=== PATIENT | male | born 1955 | race Caucasian/White ===

== ENCOUNTER 2018-08-15 11:56 | Emergency (ER) | payer MEDICAID ==
--- NOTE | 2018-08-15 12:23 | Emergency Department Record ---
History of Present Illness - General Chief complaint: Extremity Problem Stated complaint: FELL INJ LEFT ARM Time Seen by Provider: 08/15/18 12:04 Source: Patient Mode of Arrival: Ambulatory Limitations: No limitations - History of Present Illness Initial comments: The patient is here due to L elbow pain for an hour. He was out cutting wood and slipped and grabbed the door to catch himself with his L arm. He then suddenly had pain over the posterior L elbow area. Since he is able to flex the L elbow but is having a lot of pain when he extends the L arm at the elbow. MD Complaint: Extremity pain Onset/Timin -: Minutes(s) Location: Left History of Same: No Radiation: Distal Severity scale (1-10): 8 Quality: Sharp Consistency: Constant Improves with: Cold therapy Worsens with: Exertion Associated Symptoms: Denies other symptoms - Related Data Home Medications Medication Instructions Recorded Confirmed Last Taken Lisinopril 30 mg PO DAILY 08/15/18 08/15/18 08/14/18 07:30 Naproxen 500 mg PO BID 08/15/18 08/15/18 08/14/18 07:30 1 Allergies Allergy/AdvReac Type Severity Reaction Status Date / Time No Known Drug Allergies Allergy Verified 08/15/18 12:05 Travel Screening - Travel/Exposure Within Last 30 Days Have you traveled within the last 30 days?: No - Travel/Exposure Within Last Year Have you traveled outside the [place] in the last year?: No - Additonal Travel Details Have you been exposed to anyone with a communicable illness?: No - Travel Symptoms Symptom Screening: None Review of Systems Constitutional: Denies: Chills, Fever Eyes: Denies: Eye discharge ENT: Denies: Congestion Respiratory: Denies: Cough, Dyspnea Past Medical History - SOCIAL HISTORY Smoking Status: Never smoker Alcohol Use: None Drug Use: None - RESPIRATORY Hx Respiratory Disorders: No - CARDIOVASCULAR Hx Cardio Disorders: Yes Hx Hypertension: Yes - NEURO Hx Neuro Disorders: No - GI Hx GI Disorders: No - Hx Genitourinary Disorders: No - ENDOCRINE Hx Endocrine Disorders: No - MUSCULOSKELETAL Hx Musculoskeletal Disorders: Yes Hx Arthritis: Yes - PSYCH Hx Psych Problems: No - HEMATOLOGY/ONCOLOGY Hx Hematology/Oncology Disorders: No Family Medical History Any Significant Family History?: No Physical Exam - General General Appearance: Alert, Cooperative, No acute distress - Head Head exam: Atraumatic, Normocephalic, Normal inspection - Eye Eye exam: Normal appearance, PERRL - Extremities Extremities exam: Normal inspection, Normal capillary refill, Tenderness (There is significant tenderness to palpation at the insertion of the L triceps at the elbow but no swelling or bruising is appreciated.), Other (The L arm is NVI.). negative: Full ROM (The patient is able to extend the L elbow slowly and with some pain.), Joint swelling Course Vital Signs 08/15/18 12:07 Temperature 97.7 F Pulse Rate 74 Respiratory 16 Rate Blood Pressure 111/82 Pulse Ox 96 - Reevaluation(s) Reevaluation #1: I did explain to the patient that I am concerned he has a partially torn Tricep muscle. I discussed with the patient that I do not feel a defect in the muscle or tendon but he is quite tender at the Tricep insertion. We will place the patient in a sling and he is to see his PCP in [place] for Ortho referral. 08/15/18 13:02 Medical Decision Making - Data Complexity MDM Data: X-Ray Ordered and/or Reviewed - Radiology Data Radiology results: Report reviewed (L elbow: small calcific density proximal to L olecranon, poss. small avulsion vs chronic changes. ) Disposition Disposition: Discharge Clinical Impression: Sprain of elbow, left Qualifiers: Encounter type: initial encounter Qualified Code(s): S53.402A - Unspecified sprain of left elbow, initial encounter Disposition: Home, Self-Care Condition: (2) Stable Instructions: Elbow Sprain (ED) Additional Instructions: Please wear the sling for a week and see your family doctor for further evaluation. Take your home Naprosyn for pain and also may add Tylenol. Please use ice on the L elbow when possible. Forms: Patient Portal Access Time of Disposition: 13:05 Quality - Quality Measures Quality Measures: N/A - Blood Pressure Screening View Details: Yes Does Patient Have Any of the Following: No Blood Pressure Classification: Pre-Hypertensive BP Reading Systolic Measurement: 111 Diastolic Measurement: 82 Screening for High Blood Pressure: < Pre-Hypertensive BP, F/U Documented > [ G8950] Pre-Hypertensive Follow-up Interventions: Referral to alternative/primary care provider.
[2018-08-15] MEDS ORDERED: KETOROLAC 30 MG/ML VIAL IM ONE (13:00)
--- NOTE | 2018-08-17 04:43 | RADIOLOGY REPORT ---
DATE: 08/15/2018. EXAM: LEFT ELBOW. HISTORY: Injury. TECHNIQUE: Four views of the left elbow. FINDINGS: Best seen on the lateral film, there is a curvilinear density adjacent to the olecranon process measuring 5.0 x 1.5 mm in size. This may represent an avulsion fracture. The bones and joints otherwise are unremarkable. There is soft tissue swelling. The joint spaces are well maintained. No joint effusion seen. IMPRESSION: CALCIFIC DENSITY SEEN ADJACENT TO THE OLECRANON WHICH MAY REPRESENT AN AVULSION FRACTURE. PLEASE CORRELATE CLINICALLY. OTHERWISE UNREMARKABLE. JOB NUMBER: [id number] [facility]
== END 2018-08-15 13:37 | disposition home or self-care (01) ==
LOC: ER 11:56
DX: S53.402A Unspecified sprain of left elbow, initial encounter (principal); W01.0XXA Fall on same level from slipping, tripping and stumbling without subsequent striking against object, initial encounter; Y93.H9 Activity, other involving exterior property and land maintenance, building and construction
CPT/HCPCS: 99283 ×2; 96372; 73080; J1885

== ENCOUNTER 2019-01-08 13:28 | Emergency (ER) | payer MEDICAID ==
--- NOTE | 2019-01-08 14:27 | Emergency Department Record ---
History of Present Illness - General Chief Complaint: Laceration(s) Stated Complaint: LACERATION ON FINGER Time Seen by Provider: 01/08/19 13:37 Source: Patient, RN notes reviewed Mode of Arrival: Ambulatory - History of Present Illness Initial Commments: laceration on a power saw index finger left hand last tetnus more than 5 years Onset/Timin -: Hour(s) Place: Work Context: Accidental, Power tool use Associated Symptoms: None - Related Data Hx Tetanus Toxoid Vaccination: Yes Year of Tetanus Vaccination: 2015 Previous Rx's Medication Instructions Recorded Cephalexin [Keflex] 500 mg PO QID #40 cap 01/08/19 Hydrocodone/Acetaminophen [Independence 1 each PO Q4HR #18 tablet 01/08/19 5-325 Tablet] Allergies Allergy/AdvReac Type Severity Reaction Status Date / Time No Known Drug Allergies Allergy Verified 08/15/18 12:05 Travel Screening - Travel/Exposure Within Last 30 Days Have you traveled within the last 30 days?: No Review of Systems Reviewed: No additional complaints except as noted below Constitutional: Reports: As per HPI. Denies: Chills, Fever, Malaise, Night sweats, Weakness, Weight change Eyes: Reports: As per HPI. Denies: Eye discharge, Eye pain, Photophobia, Vision change ENT: Reports: As per HPI. Denies: Congestion, Dental pain, Ear pain, Epistaxis, Hearing loss, Throat pain Respiratory: Reports: As per HPI. Denies: Cough, Dyspnea, Hemoptysis, Stridor, Wheezes Cardiovascular: Reports: As per HPI. Denies: Arrhythmia, Chest pain, Dyspnea on exertion, Edema, Murmurs, Orthopnea, Palpitations, Paroxysmal nocturnal dyspnea, Rheumatic Fever, Syncope Endocrine: Reports: As per HPI. Denies: Fatigue, Heat or cold intolerance, P olydipsia, Polyuria Gastrointestinal: Reports: As per HPI. Denies: Abdominal pain, Constipation, Diarrhea, Hematemesis, Hematochezia, Melena, Nausea, Vomiting Genitourinary: Reports: As per HPI. Denies: Dysuria, Frequency, Hematuria, Incontinence, Retention, Testicular pain, Testicular mass, Urgency Musculoskeletal: Reports: As per HPI. Denies: Arthralgia, Back pain, Gout, Joint swelling, Myalgia, Neck pain Skin: Reports: As per HPI. Denies: Bruising, Change in color, Change in hair/nails, Lesions, Pruritus, Rash Neurological: Reports: As per HPI. Denies: Abnormal gait, Confusion, Headache, Numbness, Paresthesias, Seizure, Tingling, Tremors, Vertigo, Weakness Psychiatric: Reports: As per HPI. Denies: Anxiety, Auditory hallucinations, Depression, Homicidal thoughts, Suicidal thoughts, Visual hallucinations Hematological/Lymphatic: Reports: As per HPI. Denies: Anemia, Blood Clots, Easy bleeding, Easy bruising, Swollen glands Past Medical History - SOCIAL HISTORY Smoking Status: Never smoker - RESPIRATORY Hx Respiratory Disorders: No - CARDIOVASCULAR Hx Cardio Disorders: Yes Hx Hypertension: Yes - NEURO Hx Neuro Disorders: No - GI Hx GI Disorders: No - Hx Genitourinary Disorders: No - ENDOCRINE Hx Endocrine Disorders: No - MUSCULOSKELETAL Hx Musculoskeletal Disorders: Yes Hx Arthritis: Yes - PSYCH Hx Psych Problems: No - HEMATOLOGY/ONCOLOGY Hx Hematology/Oncology Disorders: No Family Medical History Any Significant Family History?: No Physical Exam - General General Appearance: Alert, Oriented x3, Cooperative, No acute distress - Head Head exam: Normal inspection - Eye Eye exam: Normal appearance, PERRL Pupils: Normal accommodation - ENT ENT exam: Normal exam, Mucous membranes moist, Normal external ear exam, Normal orophraynx, TM's normal bilaterally Ear exam: Normal external inspection. negative: External canal tenderness Nasal Exam: Normal inspection. negative: Discharge, Sinus tenderness Mouth exam: Normal external inspection, Tongue normal Teeth exam: Normal inspection. negative: Dental caries Throat exam: Normal inspection. negative: Tonsillar erythema, Tonsillar exudate - Neck Neck exam: Normal inspection, Full ROM. negative: Tenderness - Respiratory Respiratory exam: Normal lung sounds bilaterally. negative: Respiratory distress - Cardiovascular Cardiovascular Exam: Regular rate, Normal rhythm, Normal heart sounds - GI/Abdominal GI/Abdominal exam: Soft, Normal bowel sounds. negative: Tenderness - Rectal Rectal exam: Deferred - exam: Deferred - Extremities Extremities exam: Normal inspection, Full ROM, Normal capillary refill. negative: Tenderness - Back Back exam: Reports: Normal inspection, Full ROM. Denies: Muscle spasm, Rash noted, Tenderness - Neurological Neurological exam: Alert, Normal gait, Oriented X3, Reflexes normal - Psychiatric Psychiatric exam: Normal affect, Normal mood - Skin Skin exam: Dry, Intact, Normal color, Warm Course Vital Signs 01/08/19 13:37 Temperature 98.0 F Pulse Rate 67 Respiratory 20 Rate Blood Pressure 101/69 Pulse Ox 96 - Reevaluation(s) Reevaluation #1: laceration avulsion type and nothing to repair and he hit the bone with a saw. Injury happened at work 01/08/19 14:54 01/08/19 14:58 Cleaned laceration with shurclnse and irriagted and no FB 's seen Reevaluation #2: discussed with him risks of infection high and will not put sutures in because risk on infection is high. 01/08/19 15:09 Reevaluation #3: referral to Dr Gonzalez for evaluation on friday or 01/08/19 15:11 01/08/19 15:14 Medical Decision Making - Data Complexity MDM Data: X-Ray Ordered and/or Reviewed (chips of bone seem on xray) Disposition Clinical Impression: Open fracture of finger Qualifiers: Encounter type: initial encounter Finger: index finger Phalanx: distal Fracture alignment: nondisplaced Laterality: left Qualified Code(s): S62.661B - Nondisplaced fracture of distal phalanx of left index finger, initial encounter for open fracture Disposition: Home, Self-Care Condition: (1) Good Instructions: Laceration (ED) Additional Instructions: follow up with Dr Gonzalez on friday of friday for revaluation. Prescriptions: Hydrocodone/Acetaminophen [Independence 5-325 Tablet] 1 each PO Q4HR #18 tablet Cephalexin [Keflex] 500 mg PO QID #40 cap Forms: Patient Portal Access Time of Disposition: 15:16 Quality - Blood Pressure Screening Does Patient Have Any of the Following: No Blood Pressure Classification: Normal BP Reading Systolic Measurement: 101 Diastolic Measurement: 69 Screening for High Blood Pressure: < Normal BP, F/U Not Required > [G8783]
[2019-01-08] MEDS ORDERED: Diph,Pert(Acell),Tet Vac 0.5 ML SYR IM ONE (14:45)
--- NOTE | 2019-01-09 21:36 | RADIOLOGY REPORT ---
EXAM: HAND, LEFT 3 VIEWS HISTORY: LACERATION INVOLVING DISTAL ASPECT OF SECOND DIGIT. TECHNIQUE: Three views of the left hand. COMPARISON: None. ENCOUNTER: Initial. FINDINGS: There is normal bone mineralization. There is soft tissue swelling involving the distal aspect of the second digit with lucent defect at the anterior tip consistent with history of laceration. On AP and oblique view, there are a couple of tiny hyperdensities projecting at the level of the lateral distal soft tissues of this digit. It is indeterminate whether these are tiny bone fragments or foreign bodies. No definite donor site. No other osseous evidence of fracture nor dislocation. There are mild degenerative changes scattered throughout the hand. There are moderate degenerative changes of the left wrist. There is marked widening of the scapholunate joint space with proximal migration of the capitate consistent with chronic scapholunate ligament tear. Benign cyst is suggested within the radial styloid measuring 7 x 5 mm. IMPRESSION: 1. SOFT TISSUE LACERATION WITH ASSOCIATED SWELLING INVOLVING THE TIP OF THE SECOND DIGIT. THERE ARE A COUPLE TINY HYPERDENSITIES IN THIS REGION LATERALLY, WHICH MAY REPRESENT FOREIGN BODIES, BENIGN SOFT TISSUE CALCIFICATION, OR TINY FRACTURE FRAGMENTS, THOUGH NO DEFINITE DONOR SITE IS SEEN. 2. NO OTHER FRACTURE NOR DISLOCATION. 3. MILD DEGENERATIVE CHANGES SCATTERED THROUGHOUT THE HAND. DEGENERATIVE CHANGES OF THE WRIST, MODERATE IN DEGREE. CHRONIC SCAPHOLUNATE LIGAMENT TEAR WITH WIDENING OF THE SCAPHOLUNATE JOINT SPACE AND PROXIMAL MIGRATION OF THE CAPITATE. JOB NUMBER: [id number] [facility]
== END 2019-01-08 15:33 | disposition home or self-care (01) ==
LOC: ER 13:28
DX: S62.661B Nondisplaced fracture of distal phalanx of left index finger, initial encounter for open fracture (principal); I10 Essential (primary) hypertension; W31.2XXA Contact with powered woodworking and forming machines, initial encounter; Y99.0 Civilian activity done for income or pay
CPT/HCPCS: 90715; 96372; 99283; 99284